=== PATIENT | female | born 1995 | race Caucasian/White ===

== ENCOUNTER 2022-04-24 12:28 | Emergency (ER) | payer OTHER ==
[~2022-04-24] VITALS: Ht 162.6 cm; Wt 46.3 kg
== END 2022-04-24 17:03 | disposition home or self-care (01) ==
LOC: ER 12:28
DX: O21.9 Vomiting of pregnancy, unspecified (principal); Z3A.12 12 weeks gestation of pregnancy; E86.0 Dehydration; Z88.8 Allergy status to other drugs, medicaments and biological substances

== ENCOUNTER 2022-05-05 22:44 | Emergency (ER) | payer OTHER ==
[~2022-05-05] VITALS: Ht 165.1 cm; Wt 45.8 kg
== END 2022-05-06 04:16 | disposition home or self-care (01) ==
LOC: ER 22:44
DX: O21.1 Hyperemesis gravidarum with metabolic disturbance (principal); Z3A.09 9 weeks gestation of pregnancy; Z88.8 Allergy status to other drugs, medicaments and biological substances

== ENCOUNTER 2022-05-28 09:14 | Outpatient (CLI) | payer OTHER | END 2022-05-28 10:21 | disposition home or self-care (01) | LOC: PRENATAL 09:14 | PROVIDERS: ATTEND Obstetrics & Gynecology Maternal & Fetal Medicine | DX: O36.80X0 Pregnancy with inconclusive fetal viability, not applicable or unspecified (principal); Z14.8 Genetic carrier of other disease; Z3A.12 12 weeks gestation of pregnancy ==

== ENCOUNTER 2022-07-03 19:55 | Emergency (ER) | payer OTHER ==
[~2022-07-03] VITALS: Ht 162.6 cm; Wt 65.3 kg
== END 2022-07-03 22:08 | disposition home or self-care (01) ==
LOC: ER 19:55
DX: O99.511 Diseases of the respiratory system complicating pregnancy, first trimester (principal); J06.9 Acute upper respiratory infection, unspecified; Z3A.01 Less than 8 weeks gestation of pregnancy; Z88.8 Allergy status to other drugs, medicaments and biological substances

== ENCOUNTER 2022-07-18 12:49 | Outpatient (CLI) | payer OTHER | END 2022-07-18 14:28 | disposition home or self-care (01) | LOC: PRENATAL 12:49 | PROVIDERS: ATTEND Obstetrics & Gynecology Maternal & Fetal Medicine | DX: O35.9XX0 Maternal care for (suspected) fetal abnormality and damage, unspecified, not applicable or unspecified (principal); O35.3XX0 Maternal care for (suspected) damage to fetus from viral disease in mother, not applicable or unspecified; Z3A.20 20 weeks gestation of pregnancy ==

== ENCOUNTER 2022-08-27 10:23 | Emergency (ER) | payer OTHER ==
[~2022-08-27] VITALS: Ht 162.6 cm; Wt 51.7 kg
[2022-08-27] MEDS ORDERED: OSEL75CA PO (12:43)
[2022-08-27] MEDS ORDERED: INTEGRA PLUS C1 EACH PO (12:43)
[2022-08-27] MEDS ORDERED: TUSSIN100 MG/51 PO (12:43)
== END 2022-08-27 13:37 | disposition home or self-care (01) ==
LOC: ER 10:23
DX: O98.512 Other viral diseases complicating pregnancy, second trimester (principal); J10.1 Influenza due to other identified influenza virus with other respiratory manifestations; Z3A.25 25 weeks gestation of pregnancy; Z20.822 Contact with and (suspected) exposure to COVID-19; Z88.8 Allergy status to other drugs, medicaments and biological substances

== ENCOUNTER 2022-10-10 09:19 | Outpatient (CLI) | payer OTHER ==
[~2022-10-10 09:19] MED LIST: INTEGRA PLUS C1 EACH PO; OSEL75CA PO; TUSSIN100 MG/51 PO
== END 2022-10-10 11:01 | disposition home or self-care (01) ==
LOC: PRENATAL 09:19
PROVIDERS: ATTEND Obstetrics & Gynecology Maternal & Fetal Medicine
DX: O26.849 Uterine size-date discrepancy, unspecified trimester (principal); O35.3XX0 Maternal care for (suspected) damage to fetus from viral disease in mother, not applicable or unspecified; O36.8199 Decreased fetal movements, unspecified trimester, other fetus; Z3A.32 32 weeks gestation of pregnancy

== ENCOUNTER 2023-01-29 21:10 | Emergency (ER) | payer OTHER ==
[~2023-01-29] VITALS: Ht 157.5 cm; Wt 68.0 kg
[~2023-01-29 21:10] MED LIST changes: +PRENATAL TABLE1 EAC4 PO
[2023-01-29 21:49] LABS: HEMOGLOBIN 12.7 g/dL (12.0-15.00); MEAN CORPUSCULAR HEMOGLOBIN 28.3 pg (27.00-32.0); MEAN CORPUSCULAR HGB CONC 32.6 g/dl (32.0-36.0); PLATELET COUNT 224 K/uL (150-450); RED BLOOD COUNT 4.48 M/uL (4.00-6.00); RED CELL DISTRIBUTION WIDTH 16.3 % (11.5-14.5)
== END 2023-01-29 22:43 | disposition home or self-care (01) ==
LOC: ER 21:10
DX: J06.9 Acute upper respiratory infection, unspecified (principal); Z20.822 Contact with and (suspected) exposure to COVID-19